=== PATIENT | female | born 1970 | race Native Hawaiian/Other Pacific Islander ===

== ENCOUNTER 2019-03-10 13:05 | Outpatient (CLI) | payer OTHER | END 2019-03-10 20:07 | disposition home or self-care (01) | LOC: MRI 13:05 | DX: M54.6 Pain in thoracic spine (principal) ==

== ENCOUNTER 2020-07-25 10:09 | Outpatient (CLI) | payer OTHER ==
[2020-07-25 10:46] LABS: PLATELET COUNT 313 K/uL (152-353)
[2020-07-25 10:51] LABS: POTASSIUM 3.8 mmol/L (3.6-5.2)
== END 2020-07-25 21:42 | disposition home or self-care (01) ==
LOC: RAD 10:09
PROVIDERS: ATTEND Nurse Practitioner Family
DX: Z01.818 Encounter for other preprocedural examination (principal)
CPT/HCPCS: 36415; 80053; 85027

== ENCOUNTER 2020-08-28 07:56 | Outpatient (CLI) | payer OTHER ==
[~2020-08-28] VITALS: Ht 175.3 cm; Wt 102.1 kg
== END 2020-08-28 19:11 | disposition home or self-care (01) ==
LOC: NM 07:56 → RESP 09:00 → NM 09:00
PROVIDERS: ATTEND Nurse Practitioner Family
DX: I10 Essential (primary) hypertension (principal)
CPT/HCPCS: A9500; J2785